=== PATIENT | male | born 1950 | race Caucasian/White ===

== ENCOUNTER 2021-07-16 15:55 | Inpatient (IN) | payer OTHER, SELFPAY ==
[2021-07-16] VITALS (41 sets, daily range): BP systolic 89–167; BP diastolic 34–145; PULSE 81–117; RESP 15–35; TEMP 36.6–36.7; O2SAT 95–100
--- NOTE | 2021-07-16 16:00 | RT.EKG_ITS ---
APPROVED REPORT Exam: Resting ECG Reason for Exam: sob Patient Location: E HR:93 bpm ECG Measurements Heart Rate 93 AXIS NM [id number] P [id number] QRSd 94 QRS 12 QT 363 T 141 QTc 452 Conclusion Atrial fibrillation...V-rate 79-111, irreg A-activity Abnormal T, consider ischemia, lateral leads...T <-0.20mV, I aVL V5 V6. Afib. T wave inversion in lateral leads. No STEMI. No significant change from previous. I have reviewed and interpreted ECG and agree with software generated interpretation.
--- NOTE | 2021-07-16 16:00 | RT.EKG_ITS ---
APPROVED REPORT Exam: Resting ECG Reason for Exam: SOB Patient Location: E HR:100 bpm ECG Measurements Heart Rate 100 AXIS ID [id number] P [id number] QRSd 89 QRS 45 QT 367 T 140 QTc 474 Conclusion Atrial fibrillation...V-rate 74-113, irreg A-activity Nonspecific T abnormalities, lateral leads...T <-0.10mV, I aVL V5 V6. Afib. T wave inversion and < 1mm ST depression in I and aVL. T wave inversion in V6. No STEMI. I have reviewed and interpreted ECG and agree with software generated interpretation.
--- NOTE | 2021-07-16 16:15 | DI.RAD_ITS ---
Exam(s) XR PORTABLE CHEST AP EXAM: XR PORTABLE CHEST AP CLINICAL HISTORY: PUI, SOB, CP TECHNIQUE: COMPARISON: No exams were available for comparison FINDINGS: Portable AP chest at 1725 hours. Heart is mildly enlarged. There are multiple sternal sutures. The re is loss of the diaphragmatic contour on the left, left lower lobe atelectasis likely. Probable le ft pleural effusion. Left lower lobe consolidation not excluded. Question small right pleural effus ion and/or atelectasis. Upper lung zones appear clear. IMPRESSION: Question bibasilar areas of atelectasis versus consolidation, question pleural effusions. PA and lat eral chest recommended for additional evaluation. RADIATION DOSE DELIVERED: Total DLP
--- NOTE | 2021-07-16 16:29 | ED.GENADUL_ITS ---
Discharge Plan Discharge Details Chief Complaint: SOB Clinical Impression: CHF (congestive heart failure) Admit Date/Time: 07/16/21 19:08 Admit Provider: Kelvin Molina Attending Provider: Kelvin Molina Primary Care Provider: Radha,Local ED Provider: Cherie Haynes Discharge Data Discharge Date/Time-TO BE ENTERED AT DEPARTURE: 07/16/21 19:45 Medical Decision Making 71-year-old male presents to the ER with chief complaint of trouble breathing times a month. Patient is status post open heart surgery in December in [place]. He reports having Covid earlier this year. He is fully vaccinated for the Covid virus. He reports nonproductive cough and increased shortness of breath which wakes him up from sleep. He also reports some intermittent chest pain. He takes carvedilol and aspirin he did not take any aspirin today. He is speaking in full sentences, satting 100% on room air, no increased work of breathing. Cardiac work-up ordered including serial troponins, proBNP, chest x-ray and 324 mg aspirin. CBC shows no leukocytosis, CMP shows BUN 28 creatinine 1.7 GFR is 40, proBNP is 22,787 Covid is negative. Initial troponin within normal limit. Imaging protocol: XR of the chest. Views: 1 view. Other technique: Portable exam. COMPARISON: No relevant prior studies available. FINDINGS: Lungs: There is some coarse left lower lobe retrocardiac markings. There is some mild hazy groundglass change in the right upper lobe. Pleural spaces: Small left and probable trace right pleural effusion. Heart/Mediastinum: Cardiomegaly. Bones/joints: Status post median sternotomy. IMPRESSION: Left lower lobe atelectasis. Early consolidation not excludable. Small left and probable trace right effusion. 174: Discussed findings with patient and recommendation for admission. Patient is in agreement with plan and verbalized understanding. 40 mg Lasix IV ordered. Hospitalist paged. [phone]: Spoke with Dr. Molina, he does not accept patient for admission at this time due to lack of echocardiogram capabilities for a week. Will seek lateral tr ansfer. Discussed plan with patient , he does not wish to go to [place], he is requesting admission here with a down and back for ECHO. Will discuss options with Dr. Molina. 190: Call made to [facility] to speak with hospitalist, will call back. 1908: Spoke with Dr. Molina to discuss patients request not to be transferred. He agrees to accept patient will explore other options for echocardiogram possibilities. Holding orders placed. HPI General Mode of arrival: ambulatory . Date/Time Provider Initiated Documentation: 07/16/21 16:03 . Limitations to Documentation: no limitations . Information obtained by: patient and RN notes reviewed . HPI Narrative: 71-year-old male presents to the ER with chief complaint of trouble breathing times a month. Patient is status post open heart surgery in December in [place]. He reports having Covid earlier this year. He is fully vaccinated for the Covid virus. He reports nonproductive cough and increased shortness of breath which wakes him up from sleep. He also reports some intermittent chest pain. He takes carvedilol and aspirin he did not take any aspirin today. He is speaking in full sentences, satting 100% on room air, no increased work of breathing. Related Data Home Medications Medication Instructions Recorded Confirmed aspirin [Aspir-Low] 81 mg PO DAILY 07/16/21 07/16/21 carvedilol 3.125 mg PO DAILY 07/16/21 07/16/21 Allergies Allergy/AdvReac Type Severity Reaction Status Date / Time Sulfa (Sulfonamide AdvReac Unknown Unverified 07/16/21 16:22 Antibiotics) General Stated Complaint: SOB ROCIO: 2 Review of Systems Narrative: Constitutional: Negative for weight loss, alert and oriented, well groomed, normal body habitus, appears comfortable. HEENT: Denies trauma, headaches, blurry vision, nasal discharge, sore throat, trouble swallowing. Chest: Denies palpitations, irregular rhythm, hypertension. Positive intermittent midsternal chest pain history of open heart surgery. Respiratory: Denies hemoptysis. Positive nonproductive cough positive shortness of breath. GI: Denies abdominal pain, nausea, vomiting, diarrhea, constipation. : Denies dysuria, hematuria, flank pain, rectal bleeding. Neuro: Denies dizziness, blurry vision, weakness, syncope, headache or facial numbness. Hematologic: Denies easy bruising, intolerance to heat or cold, hair loss. [facility] Social History Smoking/Tobacco Use Status: Never Smoking risk assessment performed?: Yes Drug use: Occasionally Substance use type: marijuana Additional Social history: lives in his car - travels through [place] Exam Narrative Exam Narrative: Constitutional: Alert and oriented x3. Appears stated age. Normal body habitus. Head: Normocephalic, no trauma. Eyes: Pupils PERRLA, Red reflex noted, EOM's intact. Eyelids symmetrical without lesions, discharge, or swelling. ENT: Bilateral TM's WNL, External ear normal to inspection, no mastoid TTP, swelling, or erythema, Nasal turbinates WNL, no nasal discharge. Normal dentition, Posterior pharynx WNL, no exudate. Chest: RRR, Normal S1, S2, distal pulses intact. Resp: Lungs clear to auscultation bilaterally, no wheezes, rales, or rhonchi. Abdomen: Soft, nondistended nontender to palpation all 4 quadrants. Musculoskeletal: Normal gait, 5/5 strength to all four extremities. Skin: No suspicious rashes or lesions. Capillary refill less than 2 sec. Neurologic: Cranial nerves II-XII intact. Alert and oriented x 3. DTR's intact. Hematologic/Lymphatic: No ecchymosis, no lymphadenopathy. 11 Course Vital Signs Vital signs: Vital Signs Temperature 36.7 C 07/16/21 16:02 Pulse 115 H 07/16/21 16:02 Respiratory Rate 15 07/16/21 16:02 Blood Pressure 153/113 H 07/16/21 16:02 Pulse Oximetry 100 07/16/21 16:02 Temperature 36.7 C 07/16/21 16:02 Temperature Source Skin 07/16/21 16:02 Pulse 115 H 07/16/21 16:02 Respiratory Rate 15 07/16/21 16:02 Respiratory Effort Incrsd Work of Breathing 07/16/21 16:14 Blood Pressure 153/113 H 07/16/21 16:02 Pulse Oximetry 100 07/16/21 16:02 Oxygen Delivery Method Room Air 07/16/21 16:02 Oxygen Flow Rate 0 07/16/21 16:02 Pain Level 7 07/16/21 16:02
[2021-07-16 16:35] LABS: Source Nasal/Nares
[2021-07-16 16:42] LABS: Abs Immature Grans 0.03 10^3/uL (0.0-0.06); Absolute Basophil Count 0.12 10^3/uL (0.0-0.2); Absolute Eosinophil Count 0.17 10^3/uL (0.0-0.7); Absolute Lymphocyte Count 2.04 10^3/uL (1.2-3.4); Absolute Monocyte Count 1.02 10^3/uL (0.1-0.8); Absolute Neutrophil Count 6.21 10^3/uL (1.2-6.7); Basophils % 1.3; Eosinophils % 1.8; HCT 41.8 % (40.0-50.0); HGB 12.9 g/dL (13.5-17.5); Immature Grans % 0.3; Lymphocytes % 21.3; MCH 26.3 pg (27.0-33.0); MCHC 30.9 % (32.0-36.0); MCV 85.1 fL (80-95); MPV 9.7 fL (8.0-11.0); Monocytes % 10.6; Neutrophils % 64.7; Nucleated RBC 0 %; Platelet Count 221 10^3/uL (130-400); RBC 4.91 10^6/uL (4.36-5.78); RDW 20.2 % (11.8-14.1); RDW-SD 62.1 fL; WBC 9.59 10^3/uL (4.4-10.8)
[2021-07-16 16:50] LABS: Magnesium 2.4 mg/dL (1.8-2.4)
[2021-07-16 17:00] LABS: ALT 57 U/L (16-63); AST 34 U/L (15-37); Albumin 4.2 g/dL (3.4-5.0); Alkaline Phosphatase 182 U/L (46-116); Anion Gap 9.8 mmol/L (3-11); Anisocytosis 1+; BUN 28 mg/dL (7-18); Bilirubin, Total 0.9 mg/dL (0.2-1.0); CO2 25.2 mmol/L (21.0-32.0); CREATININE 1.7 mg/dL (0.70-1.30); Calcium 9.7 mg/dL (8.5-10.1); Chloride 107 mmol/L (98-107); Diff Comment RBC Morph Reviewed; Estimated GFR 40.04 (mL/min/1.73m2); Glucose 101 mg/dL (74-106); Poikilocytes 1+; Sodium 142 mmol/L (136-145); Total Protein 7.4 g/dL (6.4-8.2)
[2021-07-16 17:01] LABS: Troponin I < 0.05 ng/mL (<0.06)
[2021-07-16] MEDS: Aspirin 81 MG CHEW 324 MG CH (17:29)
[2021-07-16 17:40] LABS: COVID-19 PCR Negative (Negative)
--- NOTE | 2021-07-16 17:44 | DI.VRAD_ITS ---
PROCEDURE INFORMATION: Exam: XR Chest Exam date and time: 07/16/2021 4:29 PM Age: 71 years old Clinical indication: Shortness of breath TECHNIQUE: Imaging protocol: XR of the chest. Views: 1 view. Other technique: Portable exam. COMPARISON: No relevant prior studies available. FINDINGS: Lungs: There is some coarse left lower lobe retrocardiac markings. There is some mild hazy ground-glass change in the right upper lobe. Pleural spaces: Small left and probable trace right pleural effusion. Heart/Mediastinum: Cardiomegaly. Bones/joints: Status post median sternotomy. IMPRESSION: Left lower lobe atelectasis. Early consolidation not excludable. Small left and probable trace right effusion. Dictated and Authenticated by: Sarah Beth Mast MD. Ordering:LUCI Crespo MD
[2021-07-16] MEDS: Furosemide 40 MG/4 ML VIAL IVP (18:17)
--- NOTE | 2021-07-16 19:05 | NUR.NOTE ---
pt provided with a meal Nursing Note:
[2021-07-16 19:46] LABS: Troponin I < 0.05 ng/mL (<0.06)
--- NOTE | 2021-07-16 20:47 | W.PM.HP.N ---
Date of service: 07/16/21 Time of Service: 20:47 Assessment and Plan Assessment and plan (1) CHF (congestive heart failure): Status: Chronic Assessment and plan: [facility]ARYNA in [facility] in April of 2021 with EF of 25-30%. No echocardiogram capability here at this time. Can consult Dr Cintron for a bedside US. Lasix 40mg IV given in the ED with good results. Cont Lasix 40mg daily. He has been prescribed 40mg po daily but doesn't endorse taking it at this time. Cont Carvedilol, lisinopril. Low Na diet. Don't believe a fluid restriction is necessary but will initiate if he is noted to take in excessive amounts orally. (2) Atrial fibrillation with rapid ventricular response: Status: Acute Assessment and plan: Ventricular rate not exceptionally elevated; in the 110's and then improved. Cont Carvedilol. Cont Diltiazem prescribed at recent hospitalization if he will cooperate and take it. Cont Eliqus; again, if he will take it. Telemetry. (3) Paranoid schizophrenia: Status: Acute Assessment and plan: He is dubious vs completely in denial regarding this diagnosis. On his Hospital Discharge papers from his recent hospitalization he has written the word false by paranoid schizophrenia listed in his PMH and by Psychiatry exams descriptions of abnormal judgment and insight. He also wrote poison by respiradone (a previous medication). Currently on no antipsychotics; refuses to take. (4) CKD (chronic kidney disease): Status: Chronic Assessment and plan: His creatinine at time of d/c from [facility] was 1.2; 1.7 currently. Monitor while diuresing. (5) Essential hypertension: Status: Acute Assessment and plan: He is willing to take Carvedilol and Lisinopril. Cardizem CD 120mg prescribed but hasn't taken. Monitor. (6) H/O mitral valve replacement: Status: Acute Assessment and plan: Discuss a possible bedside echo performed by [facility] to evaluate valve. History of Present Illness History of Present Illness Chief Complaint: Shortness of breath Narrative: This is a 71 year old male with a PMH of HFrEF, afib, paranoid schizophrenia with delusions, HTN, CKD, T5-T7 osteomyelitis, L2-L2 osteomyelitis, mitral valve replacement in Dec 2020 (endocarditis?). He presented with appx 1 month of increasing dyspnea. He did endorse yumiko COVID-19 while in the hospital earlier this year and also states he is vaccinated. He reported a nonproductive cough that wakes him from sleep. He denies a F/C. He states he only trusts taking the carvedilol, lisinopril and aspirin he has been prescribed and doesn't always take them on a daily basis. He endorses trying to limit his Na intake but went into detail about a breakfast he recently ate that was high in Na. He denied CP. ED w/u showed HR in the 110's and irregular / afib. EKG showed afib as well. Respiratory rate in the low to upper 20's. SBP 140's - 160's. RA O2 saturations in the upper 90's. WBC count normal. BUN 28, creatinine 1.7 (1.2 in April 2021). NTProBNP 22,787. Covid neg. Initial troponin neg. PCXR LLL atelectasis; early consolidation not excluded. Small left and probable tr right effusion. Given his mitral valve replacement earlier this year and an EF on KARYNA in April of this year of 25-30% a repeat echocardigram would be prudent. There is no echo available this week at [facility] and the ED physician discussed transferring the patient to another facility that had current echocardiogram capability. The patient refused transfer and preferred to stay at [facility]. Review of Systems All systems reviewed & are unremarkable except as noted in HPI and below PFSH Social History Smoking/Tobacco Use Status: Never Smoking risk assessment performed?: Yes Drug use: Occasionally Substance use type: marijuana Additional Social history: lives in his car - travels through [place] Allergies and Home Medications Allergies Allergy/AdvReac Type Severity Reaction Status Date / Time Sulfa (Sulfonamide AdvReac Unknown Unverified 07/16/21 16:22 Antibiotics) Home Medications Medication Instructions Recorded Confirmed Type aspirin [Aspir-Low] 81 mg PO DAILY 07/16/21 07/16/21 History carvedilol 3.125 mg PO DAILY 07/16/21 07/16/21 History Exam Const General: cooperative, comfortable and no acute distress Nutritional Appearance: average body habitus Orientation: alert and oriented x3 HENMT Head: normocephalic and atraumatic Eyes General: appearance normal, both eyes and all related structures Sclera: sclerae normal Neck Neck: full ROM and no JVD Resp Effort & Inspection: normal respiratory effort Auscultation: clear to auscultation bilaterally Cardio Rate: tachycardic Rhythm: abnormal rhythm irregularly irregular GI Palpation: soft and nontender Skin General skin exam: no rashes or lesions noted Extrem General: no pedal edema and no calf tenderness Psych Appearance: grossly normal Mood: expansive Affect: animated Thought Process: tangential Insight: poor Judgment: poor Results Labs Result diagrams: 07/16/21 16:20 07/16/21 16:20 Labs: Laboratory Results - last 24 hr 07/16/21 07/16/21 07/16/21 16:20 16:20 16:20 WBC 9.59 RBC 4.91 Hgb 12.9 L Hct 41.8 MCV 85.1 MCH 26.3 L MCHC 30.9 L RDW 20.2 H Plt Count 221 MPV 9.7 Immature Gran % 0.3 Neutrophils % 64.7 Lymphocytes % 21.3 Monocytes % 10.6 Eosinophils % 1.8 Basophils % 1.3 Nucleated RBC % 0 Absolute Neutrophils 6.21 Absolute Lymphocytes 2.04 Absolute Monocytes 1.02 H Absolute Eosinophils 0.17 Absolute Basophils 0.12 RBC Morphology See Below Poikilocytosis 1+ Anisocytosis 1+ Sodium 142 Potassium 5.0 Chloride 107 Carbon Dioxide 25.2 Anion Gap 9.8 BUN 28 H Creatinine 1.7 H Estimated GFR/1.73 m2 40.04 Glucose 101 Calcium 9.7 Magnesium 2.4 Total Bilirubin 0.9 AST 34 ALT 57 Alkaline Phosphatase 182 H Troponin I < 0.05 NT-Pro-B Natriuret Pep 30485 H Total Protein 7.4 Albumin 4.2 COVID-19 Source SARS-CoV-2 (PCR) 07/16/21 07/16/21 16:28 19:15 WBC RBC Hgb Hct MCV MCH MCHC RDW Plt Count MPV Immature Gran % Neutrophils % Lymphocytes % Monocytes % Eosinophils % Basophils % Nucleated RBC % Absolute Neutrophils Absolute Lymphocytes Absolute Monocytes Absolute Eosinophils Absolute Basophils RBC Morphology Poikilocytosis Anisocytosis Sodium Potassium Chloride Carbon Dioxide Anion Gap BUN Creatinine Estimated GFR/1.73 m2 Glucose Calcium Magnesium Total Bilirubin AST ALT Alkaline Phosphatase Troponin I < 0.05 NT-Pro-B Natriuret Pep Total Protein Albumin COVID-19 Source Nasal/Nares SARS-CoV-2 (PCR) Negative Last Vital Signs Temp 36.6 C 07/16/21 19:38 Pulse 95 H 07/16/21 19:38 Resp 24 07/16/21 19:38 BP 143/103 H 07/16/21 19:38 Pulse Ox 97 07/16/21 19:38
[2021-07-17] MEDS: LORazepam 2 MG/ML VIAL 0.5 MG IVP ×2 (01:23→23:15)
[2021-07-17] MEDS: Melatonin 3 MG TAB PO ×2 (01:23→23:13)
[2021-07-17 07:01] VITALS: PULSE 101
[2021-07-17 07:25] LABS: Anion Gap 11.3 mmol/L (3-11); BUN 27 mg/dL (7-18); CO2 24.7 mmol/L (21.0-32.0); CREATININE 1.5 mg/dL (0.70-1.30); Calcium 8.7 mg/dL (8.5-10.1); Chloride 107 mmol/L (98-107); Estimated GFR 46.27 (mL/min/1.73m2); Glucose 84 mg/dL (74-106); Potassium 3.8 mmol/L (3.5-5.1); Sodium 143 mmol/L (136-145)
[2021-07-17 08:00] VITALS: BP 147/95; PULSE 79; RESP 16; TEMP 36.4; O2SAT 98
[2021-07-17] MEDS: Carvedilol 12.5 MG TAB 25 MG PO ×2 (08:37→23:12)
[2021-07-17] MEDS: Apixaban 5 MG TAB PO ×2 (08:37→23:12)
[2021-07-17] MEDS: Normal Saline Flush 10 ML SYR IVP ×2 (08:38→23:16)
[2021-07-17] MEDS: Furosemide 40 MG/4 ML VIAL IVP (08:38)
[2021-07-17] MEDS: Aspirin 81 MG CHEW PO (08:38)
--- NOTE | 2021-07-17 08:50 | INITIAL_ITS ---
- If Service Date Differs Date of service: 07/17/21 Time of Service: 08:50 Care Management Initial Assess REASON FOR HOSPITALIZATION:: CHF, Atrial fibrillation with rapid ventricular response PAST MEDICAL HISTORY/PAST SURGICAL HISTORY:: CHF, CKD PREVIOUS FUNCTIONAL STATUS/SOCIAL/FAMILY SUPPORTS:: Chelsea reports that he has been living out of his vehicle for 28 years, by choice. He conciders himself a traveler (from [facility]). He shares that his [place] is on [place], [place]. Chelsea shares that he is happy living out of his vehicle, but admits the humidity affects his breathing. CURRENT FUNCTIONAL STATUS:: Chelsea was laying in bed when CM met with him. He was pleasant, cooperative and engaged in conversation, which at times seemed grandiose in nature. Chelsea shares that he has not had a PCP in serveral years and wants a short stay at the hospital to get a once over and solve all his medical problems with a thorough evaluation. He has no interest in establishing care with a PCP because he is a traveler. ADVANCE DIRECTIVES:: None on file Has patient been provided with info about the portal/API?: Yes Did the patient sign up for the portal?: No CODE STATUS:: Full Code INSURANCE COVERAGE / FINANCIAL ISSUES:: Commercial Medicare Replacement CURRENT HOME/COMMUNITY SERVICES/EQUIPMENT:: None PRIMARY CARE PHYSICIAN:: None, Chelsea expresses no interest in establishing care with a PCP. PATIENT/FAMILY EDUCATION NEEDS:: Review discharge plan and follow up instructions, ask me three. ANTICIPATED BARRIERS TO DISCHARGE:: Patient appealed his discharge with [facility] after he was medically cleared for discharge. TRANSPORTATION:: Via private vehicle. PLAN:: Discharge with outpatient follow up when medically cleared. Provider informed CM of concerns in terms of no housing (patient has lived out of his car for 28 years). CM attempted to support patient by contacting emergency services. Patient declined emergency housing, after CM set up an in person appointment with economic services at their location. Patient inquired about appealing discharge. CM supported request by providing information for [employer] (Medicare Appeal Agency). CM contacted [employer] to appeal discharge after he was deemed medically clear by provider. The case is now open for review. Case number is #[id number].
[2021-07-17 15:00] VITALS: PULSE 83
--- NOTE | 2021-07-17 15:44 | W.PM.DS.N ---
Date of service: 07/19/21 Time of Service: DS: Diagnosis Discharge Diagnosis (1) CHF (congestive heart failure): Start date: 07/19/21 Start time: Status: Chronic Asessment and Plan: EE in [facility] in April of 2021 with EF of 25-30%. No echo needed, Cleared with one dose of lasix, needs follow up with cardiology, he called medicaid to dispute discharge however he was denied. He is being discharged today. (2) Atrial fibrillation with rapid ventricular response: Start date: 07/19/21 Start time: Status: Acute Asessment and Plan: Rate controlled Patient denies CP, continue current meds (3) Paranoid schizophrenia: Start date: 07/19/21 Start time: Status: Acute Asessment and Plan: He is dubious vs completely in denial regarding this diagnosis. On his Hospital Discharge papers from his recent hospitalization he has written the word false by paranoid schizophrenia listed in his PMH and by Psychiatry exams descriptions of abnormal judgment and insight. He also wrote poison by respiradone (a previous medication). Currently on no antipsychotics; refuses to take. 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 (4) CKD (chronic kidney disease): Start date: 07/19/21 Start time: Status: Acute Asessment and Plan: 1.5, unsure of baseline, as [place] (5) Essential hypertension: Start date: 07/19/21 Start time: Status: Acute Asessment and Plan: continue BB, and placed on driss, lasix, will discharge on discussed with Dr. Steinberg Discharge Plan Disposition Patient Disposition: OTHER Condition: Stable Discharge Details Reason For Visit: CHF Admit Date/Time: 07/16/21 19:08 Admit Provider: Kelvin Molina Attending Provider: Kelvin Molina Primary Care Provider: Radha,[facility] Hospital Course: This is a 71 year old male with a PMH of HFrEF, afib, paranoid schizophrenia with delusions, HTN, CKD, T5-T7 osteomyelitis, L2-L2 osteomyelitis, mitral valve replacement in Dec 2020 (endocarditis?). He presented with appx 1 month of increasing dyspnea. He did endorse yumiko COVID-19 while in the hospital earlier this year and also states he is vaccinated. He reported a nonproductive cough that wakes him from sleep. He states he only trusts taking the carvedilol, lisinopril and aspirin he has been prescribed and doesn't always take them on a daily basis. ED w/u showed HR in the 110's and irregular / afib. EKG showed afib as well. Respiratory rate in the low to upper 20's. SBP 140's - 160's. RA O2 saturations in the upper 90'. BUN 28, creatinine 1.7 (1.2 in April 2021). NTProBNP 22,787. Covid neg. Initial troponin neg. Repeat negative. CXR LLL atelectasis; early consolidation not excluded. Small left and probable right effusion. Echo April 2021 with EF 25-30%. He was given a dose of lasix on discharge which cleared him that day. He was ready for discharge, but disputed discharge with medicaid. However today Medicaid denied his claim and therefore he is being discharged. Home Meds and New Rx's Prescriptions: New Eliquis 5 mg Tablet 5 mg PO BID Qty: 60 RF: 0 diltiazem HCl 120 mg Capsule,Extended Release 24hr 120 mg PO DAILY Qty: 30 RF: 0 lisinopril 5 mg Tablet 2.5 mg PO DAILY Qty: 30 RF: 0 furosemide 20 mg Tablet 20 mg PO DAILY Qty: 30 RF: 0 Continued aspirin 81 mg Tablet,Delayed Release (Dr/Ec) 81 mg PO DAILY RF: 0 carvedilol 3.125 mg Tablet 3.125 mg PO DAILY RF: 0 Discharge Instructions Instructions: Furosemide (By mouth), A-fib (Atrial Fibrillation) (DC) Additional Instructions: Follow up with cardiology Dr. Sebastian. Referral will be placed. They will call you with Date and Time. Stand Alone Forms: Nursing Discharge Form Referrals: Chen Sebastian MD [ [facility] STAFF PHYSICIAN] - None (Follow up with 2 weeks. EF of 25-30%, Seen for CHF new on lasix) Activity:: Activity as Tolerated Equipment/Supplies:: No Equipment Needed Diet:: Low Sodium Discharge Orders Discharge Orders: Discharge Order (Routine); Ordered 07/19/21 Ordered By: Merry Villalta DS: Summary Time Spent with Patient providing and/or coordinating discharge services: Less than 30 minutes Status at Discharge Functional status at discharge: independent ambulation Overall status at discharge: patient is back to baseline Mental Status: other Speech and Movement: speech and movement normal and other Mood: expansive and other Affect: animated Exam Const General: cooperative, comfortable and no acute distress Nutritional Appearance: average body habitus Orientation: alert and oriented x3 HENMT Head: normocephalic and atraumatic Eyes General: appearance normal, both eyes and all related structures Sclera: sclerae normal Neck Neck: full ROM and no JVD Resp Effort & Inspection: normal respiratory effort Auscultation: clear to auscultation bilaterally Cardio Jugular venous pressure: no JVD Rate: regular rate Rhythm: abnormal rhythm irregularly irregular Heart Sounds: murmur GI Palpation: soft and nontender General: No CVA tenderness and deferred Skin General skin exam: no rashes or lesions noted Extrem General: no pedal edema and no calf tenderness Psych Appearance: grossly normal Mental Status: other Speech and Movement: speech and movement normal and other Mood: expansive and other Affect: animated Thought Process: tangential Insight: poor Judgment: poor DS: Data Vitals/I&O Vitals and I&O: Vital Signs Temperature 36.4 C L 07/17/21 08:00 Temperature Source Tympanic 07/17/21 08:00 Pulse 79 07/17/21 08:00 Pulse Rhythm Regular 07/17/21 08:00 Pulse 101 H 07/16/21 19:30 Respiratory Rate 16 07/17/21 08:00 Respiratory Effort Non-Labored 07/17/21 08:00 Respiratory Depth Normal 07/17/21 08:00 Respiratory Pattern Normal 07/17/21 08:00 Blood Pressure 147/95 H 07/17/21 08:00 Blood Pressure Mean 111 07/16/21 19:24 Pulse Oximetry 98 07/17/21 08:00 Oxygen Delivery Method Room Air 07/17/21 08:00 Oxygen Flow Rate 0 07/17/21 08:00 Pain Level 0 07/17/21 08:00 Comment 07/17/21 00:30 Intake & Output 07/16/21 07/17/21 07/17/21 23:59 11:59 23:59 Intake Total 10 / 10 180 / 180 Output Total 1300 / 1300 300 / 300 Balance -1290 / -1290 -300 / -120 180 / -120 Weight 81.647 kg 79.3 kg Intake: IV 10 10 Oral 180 / 180 Output: Urine 1300 / 1300 300 / 300 Other: Urine Color Pale Pale Yellow Yellow Urine Appearance Clear Clear Urine Odor Normal Normal Voiding Methods Urinal Urinal Data Completed and Pending Completed studies during hospitalization [Text1]: Exam(s) XR PORTABLE CHEST AP EXAM: XR PORTABLE CHEST AP CLINICAL HISTORY: PUI, SOB, CP TECHNIQUE: COMPARISON: No exams were available for comparison FINDINGS: Portable AP chest at 1725 hours. Heart is mildly enlarged. There are multiple sternal sutures. There is loss of the diaphragmatic contour on the left, left lower lobe atelectasis likely. Probable left pleural effusion. Left lower lobe consolidation not excluded. Question small right pleural effusion and/or atelectasis. Upper lung zones appear clear. IMPRESSION: Question bibasilar areas of atelectasis versus consolidation, question pleural effusions. PA and lateral chest recommended for additional evaluation. Exam(s) PROCEDURE INFORMATION: Exam: XR Chest Exam date and time: 07/16/2021 4:29 PM Age: 71 years old Clinical indication: Shortness of breath TECHNIQUE: Imaging protocol: XR of the chest. Views: 1 view. Other technique: Portable exam. COMPARISON: No relevant prior studies available. FINDINGS: Lungs: There is some coarse left lower lobe retrocardiac markings. There is some mild hazy ground-glass change in the right upper lobe. Pleural spaces: Small left and probable trace right pleural effusion. Heart/Mediastinum: Cardiomegaly. Bones/joints: Status post median sternotomy. IMPRESSION: Left lower lobe atelectasis. Early consolidation not excludable. Small left and probable trace right effusion. Labs on day of discharge: Labs from last 24 hours 07/17/21 07/16/21 07/16/21 06:20 19:15 16:28 WBC RBC Hgb Hct MCV MCH MCHC RDW Plt Count MPV Immature Gran % Neutrophils % Lymphocytes % Monocytes % Eosinophils % Basophils % Nucleated RBC % Absolute Neutrophils Absolute Lymphocytes Absolute Monocytes Absolute Eosinophils Absolute Basophils RBC Morphology Poikilocytosis Anisocytosis Sodium 143 Potassium 3.8 D Chloride 107 Carbon Dioxide 24.7 Anion Gap 11.3 H BUN 27 H Creatinine 1.5 H Estimated GFR/1.73 m2 46.27 Glucose 84 Calcium 8.7 Magnesium Total Bilirubin AST ALT Alkaline Phosphatase Troponin I < 0.05 NT-Pro-B Natriuret Pep Total Protein Albumin COVID-19 Source Nasal/Nares SARS-CoV-2 (PCR) Negative 07/16/21 07/16/21 07/16/21 16:20 16:20 16:20 WBC 9.59 RBC 4.91 Hgb 12.9 L Hct 41.8 MCV 85.1 MCH 26.3 L MCHC 30.9 L RDW 20.2 H Plt Count 221 MPV 9.7 Immature Gran % 0.3 Neutrophils % 64.7 Lymphocytes % 21.3 Monocytes % 10.6 Eosinophils % 1.8 Basophils % 1.3 Nucleated RBC % 0 Absolute Neutrophils 6.21 Absolute Lymphocytes 2.04 Absolute Monocytes 1.02 H Absolute Eosinophils 0.17 Absolute Basophils 0.12 RBC Morphology See Below Poikilocytosis 1+ Anisocytosis 1+ Sodium 142 Potassium 5.0 Chloride 107 Carbon Dioxide 25.2 Anion Gap 9.8 BUN 28 H Creatinine 1.7 H Estimated GFR/1.73 m2 40.04 Glucose 101 Calcium 9.7 Magnesium 2.4 Total Bilirubin 0.9 AST 34 ALT 57 Alkaline Phosphatase 182 H Troponin I < 0.05 NT-Pro-B Natriuret Pep 51253 H Total Protein 7.4 Albumin 4.2 COVID-19 Source SARS-CoV-2 (PCR) [facility] Medical History (Updated 07/19/21 @ 09:36 by Merry Villalta NP) Atrial fibrillation with rapid ventricular response CHF (congestive heart failure) CKD (chronic kidney disease) Essential hypertension H/O mitral valve replacement Paranoid schizophrenia Social History Smoking/Tobacco Use Status: Never Smoking risk assessment performed?: Yes Drug use: Occasionally Substance use type: marijuana Additional Social history: lives in his car - travels through [place]
[2021-07-17 17:00] VITALS: BP 123/71; PULSE 91; RESP 16; TEMP 36.6; O2SAT 98
--- NOTE | 2021-07-17 17:59 | W.PM.PROGNOT ---
Date of Service Date of service: 07/17/21 Time of Service: 12:15 Assessment and Plan Assessment and plan (1) CHF (congestive heart failure): Start date: 07/17/21 Start time: 12:15 Status: Chronic Assessment and plan: KARYNA in [facility] in April of 2021 with EF of 25-30%. Cont Lasix 40mg daily. He has been prescribed 40mg po daily but doesn't endorse taking it at this time. Cont Carvedilol, lisinopril. Low Na diet. Don't believe a fluid restriction is necessary but will initiate if he is noted to take in excessive amounts orally. (2) Atrial fibrillation with rapid ventricular response: Start date: 07/17/21 Start time: 12:15 Status: Acute Assessment and plan: HR controlled Cont Carvedilol. Cont Diltiazem prescribed at recent hospitalization if he will cooperate and take it. Cont Eliqus; again, if he will take it. d/c as he was going to be discharged and does not require any further medical management. Lasix 20 mg daily (3) Paranoid schizophrenia: Start date: 07/17/21 Start time: 12:15 Status: Acute Assessment and plan: He is dubious vs completely in denial regarding this diagnosis. On his Hospital Discharge papers from his recent hospitalization he has written the word false by paranoid schizophrenia listed in his PMH and by Psychiatry exams descriptions of abnormal judgment and insight. He also wrote poison by respiradone (a previous medication). Currently on no antipsychotics; refuses to take. (4) CKD (chronic kidney disease): Start date: 07/17/21 Start time: 12:15 Status: Chronic Assessment and plan: His creatinine at time of d/c from [facility] was 1.2; Near baseline at 1.5 Tolerating diuretics (5) Essential hypertension: Start date: 07/17/21 Start time: 12:15 Status: Acute Assessment and plan: He is willing to take Carvedilol and Lisinopril. Cardizem CD 120mg prescribed but hasn't taken. Monitor. (6) H/O mitral valve replacement: Start date: 07/17/21 Start time: 12:15 Status: Acute Assessment and plan: Did well with low dose lasix Transitioned to PO lasix Last echo April, does not require an echo at this time. He could follow up with cardiology, No CP, discussed with Dr. Moreira Subjective Subjective Patient reports: other Interval history since last seen: Patient appropriate for discharge he does not require any inpatient care at this time. He is refusing discharge and disputing it. He is not having CP, or SOB. He has no infection or fever. He is at baseline. Recent echo in April, diuresed easily with one dose lasix. Recommend f/u with cardiology. He was initially ok with the plan and was going to set up a hotel for him as he lives in the car but then he changed his mind and decided he did not want to leave, he stated he wanted to stay and be treated. This provider explained to him that there was no reason to keep him in the hospital all labs at baseline. He does have paperwork at his bedside revealing schizophrenia on diagnosed by a psychiatrist, crossed out and stating not correct. There are also recommendations for medication management of his schizo, however he refuses to take the medication with notes next them stating wrong. Medicad pending. Will wait to discharge until his decision is made. Exam Const General: cooperative, comfortable and no acute distress Nutritional Appearance: average body habitus Orientation: alert and oriented x3 HENMT Head: normocephalic and atraumatic Eyes General: appearance normal, both eyes and all related structures Sclera: sclerae normal Neck Neck: full ROM and no JVD Resp Effort & Inspection: normal respiratory effort Auscultation: clear to auscultation bilaterally Cardio Jugular venous pressure: no JVD Rate: regular rate Rhythm: abnormal rhythm irregularly irregular Heart Sounds: murmur GI Palpation: soft and nontender General: No CVA tenderness and deferred Skin General skin exam: no rashes or lesions noted Extrem General: no pedal edema and no calf tenderness Psych Appearance: grossly normal Mood: expansive Affect: animated Thought Process: tangential Insight: poor Judgment: poor Objective Last Vital Signs Temp 36.4 C L 07/17/21 08:00 Pulse 83 07/17/21 15:00 Resp 16 07/17/21 08:00 BP 147/95 H 07/17/21 08:00 Pulse Ox 98 07/17/21 08:00 Laboratory Results - last 24 hr 07/16/21 07/17/21 19:15 06:20 Sodium 143 Potassium 3.8 D Chloride 107 Carbon Dioxide 24.7 Anion Gap 11.3 H BUN 27 H Creatinine 1.5 H Estimated GFR/1.73 m2 46.27 Glucose 84 Calcium 8.7 Troponin I < 0.05
[2021-07-17 19:00] VITALS: PULSE 93
[2021-07-17] MEDS: Gabapentin 300 MG CAP PO (23:13)
[2021-07-17] MEDS: diphenhydrAMINE 50 MG/ML VIAL 25 MG IVP (23:15)
[2021-07-18 07:41] VITALS: BP 122/83; PULSE 78; RESP 18; TEMP 36.7; O2SAT 96
[2021-07-18] MEDS: Apixaban 5 MG TAB PO (09:49)
[2021-07-18] MEDS: Furosemide 20 MG TAB PO (09:50)
[2021-07-18] MEDS: Aspirin 81 MG CHEW PO (09:50)
[2021-07-18] MEDS: Carvedilol 12.5 MG TAB 25 MG PO ×2 (09:50→21:17)
--- NOTE | 2021-07-18 10:26 | PGE_ITS ---
Date of Service Date of service: 07/18/21 Time of Service: 10:26 Assessment and Plan Assessment and plan (1) CHF (congestive heart failure): Start date: 07/18/21 Start time: 10:35 Status: Chronic Assessment and plan: At this time he has been medically cleared. he has EF of 25-30% Echo done in April, he does not need another echo at this time He cleared all symptoms within 24 hours, and is at baseline. Therefore he does not meet criteria for inpatient stay. He needs outpatient f/u with cardiology (2) Paranoid schizophrenia: Start date: 07/18/21 Start time: 10:56 Status: Acute Assessment and plan: He is dubious vs completely in denial regarding this diagnosis. On his Hospital Discharge papers from his recent hospitalization he has written the word false by paranoid schizophrenia listed in his PMH and by Psychiatry exams descriptions of abnormal judgment and insight. He also wrote poison by respiradone (a previous medication). Currently on no antipsychotics; refuses to take. 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 (3) Discharge planning issues: Start date: 07/18/21 Start time: 10:57 Status: Acute Assessment and plan: He disputed the discharge. he called medicad, no waiting for them to reveiw and give us an answer so he can be discharged. discussed with Dr. Steinberg Subjective Subjective Patient reports: other Interval history since last seen: Patient does not meet inpatient criteria. He was ready for discharge yesterday. He has been medically cleared. He recently had an echo in April with EF of 25-30%. He does not need an echo at this time he needs to follow up with a battery service technician. He recovered quickly from the lasix given with his symptoms on admission and since has not had any he is at baseline and ready for discharge. At this time he has no acute needs. 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 He refuses to believe that he has schizophrenia and take his medication. Exam Const General: cooperative, comfortable and no acute distress Nutritional Appearance: average body habitus Orientation: alert and oriented x3 HENNY Head: normocephalic and atraumatic Eyes General: appearance normal, both eyes and all related structures Sclera: sclerae normal Neck Neck: full ROM and no JVD Resp Effort & Inspection: normal respiratory effort Auscultation: clear to auscultation bilaterally Cardio Jugular venous pressure: no JVD Rate: regular rate Rhythm: abnormal rhythm irregularly irregular Heart Sounds: murmur GI Palpation: soft and nontender General: No CVA tenderness and deferred Skin General skin exam: no rashes or lesions noted Extrem General: no pedal edema and no calf tenderness Psych Appearance: grossly normal Mood: expansive Affect: animated Thought Process: tangential Insight: poor Judgment: poor Objective Last Vital Signs Temp 36.7 C 07/18/21 07:41 Pulse 78 07/18/21 07:41 Resp 18 07/18/21 07:41 BP 122/83 07/18/21 07:41 Pulse Ox 96 07/18/21 07:41
[2021-07-18 20:26] VITALS: BP 135/107; PULSE 89; RESP 17; TEMP 36.1; O2SAT 95
[2021-07-18 20:57] VITALS: BP 125/105
[2021-07-18] MEDS: diphenhydrAMINE 50 MG/ML VIAL 25 MG IVP (21:15)
[2021-07-18] MEDS: Normal Saline Flush 10 ML SYR IVP (21:17)
[2021-07-18 23:12] VITALS: BP 128/86; PULSE 88; RESP 20; TEMP 36.4; O2SAT 95
[2021-07-19 07:29] VITALS: BP 146/89; PULSE 85; RESP 17; TEMP 36.5; O2SAT 99
[2021-07-19] MEDS: Furosemide 20 MG TAB PO (08:44)
[2021-07-19] MEDS: Carvedilol 12.5 MG TAB 25 MG PO (08:44)
[2021-07-19] MEDS: Aspirin 81 MG CHEW PO (08:44)
--- NOTE | 2021-07-19 11:06 | PDOC.CMDIS ---
- If Service Date Differs Date of service: 07/19/21 Time of Service: 11:06 LACE Index Scoring Tool - Questions: Length of Stay (in days): 3 Acuity (Admit via E.D.?): Yes Comorbidities: Congestive Heart Failure, Liver or Renal Disease E.D. Visits: 1 - Answers: Total Score: 12 Risk of Readmission: High Risk Care Management Discharge Reason for Hospitalization: CHF, Atrial fibrillation with rapid ventricular response Discharge Plan: Chelsea will be discharged with no additional services. 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 He also informed CM that his appeal to Medicare re: his discharge was not upheld and that he has to be out of the hospital by noon today. Nursing requested that a boxed meal be packed for him by [employer]. Chelsea refuses follow up services with a PCP as [facility]. Patient/Family Education Needs: Review of discharge instructions, medications, folllow up plan, Ask Me Three.
== END 2021-07-19 11:06 | disposition other institution (70) | DRG 292 ==
LOC: ER 19:34 → MS 19:49
PROVIDERS: Admitting Provider Family Medicine; Emergency Provider Registered Nurse Emergency; Visit Provider Family Medicine
DX: I13.0 Hypertensive heart and chronic kidney disease with heart failure and stage 1 through stage 4 chronic kidney disease, or unspecified chronic kidney disease (principal); F20.0 Paranoid schizophrenia; J98.11 Atelectasis; I50.22 Chronic systolic (congestive) heart failure; I48.91 Unspecified atrial fibrillation; N18.9 Chronic kidney disease, unspecified; Z95.2 Presence of prosthetic heart valve; Z79.01 Long term (current) use of anticoagulants; Z86.16 Personal history of COVID-19; Z79.82 Long term (current) use of aspirin; Z20.822 Contact with and (suspected) exposure to COVID-19
CPT/HCPCS: 36415; 80048; 80053; 87635; 93005; 96374; 99285; 71045; 83735; 83880; 84484; 85025; 93010; 99223; 99231; 99238; J1200; J1940; J2060

== ENCOUNTER → 2021-07-31 14:07 | Outpatient (BNVA) | payer OTHER, SELFPAY | PROVIDERS: Visit Provider Internal Medicine Cardiovascular Disease | DX: I48.91 Unspecified atrial fibrillation (principal); I50.9 Heart failure, unspecified; Z95.2 Presence of prosthetic heart valve; Z79.01 Long term (current) use of anticoagulants | CPT/HCPCS: 99203; 99213 ==